=== PATIENT | male | born 1955 | race Caucasian/White ===

== ENCOUNTER 2019-06-19 06:00 | Outpatient (RCR) | payer OTHER, SELFPAY | END 2019-07-19 00:01 | LOC: SPT 06:00 | PROVIDERS: Family Provider Internal Medicine; Visit Provider Internal Medicine | DX: Z47.1 Aftercare following joint replacement surgery (principal); Z96.651 Presence of right artificial knee joint; M25.561 Pain in right knee | CPT/HCPCS: 97110 ×7; 97140 ×6 ==

== ENCOUNTER 2019-07-20 06:00 | Outpatient (RCR) | payer OTHER, SELFPAY | END 2019-08-15 23:00 | disposition home or self-care (01) | LOC: SPT 06:00 | PROVIDERS: Family Provider Internal Medicine; PCP Internal Medicine; Visit Provider Internal Medicine | DX: M17.11 Unilateral primary osteoarthritis, right knee (principal); Z96.651 Presence of right artificial knee joint | CPT/HCPCS: 97110; 97140; 97164 ==

== ENCOUNTER 2019-08-10 06:00 | Outpatient (RCR) | payer OTHER, SELFPAY | END 2019-08-19 23:59 | disposition home or self-care (01) | LOC: SPT 06:00 | PROVIDERS: Family Provider Internal Medicine; PCP Internal Medicine; Visit Provider Internal Medicine | DX: I89.0 Lymphedema, not elsewhere classified (principal) | CPT/HCPCS: 97140; 97161 ==

== ENCOUNTER 2019-08-22 | Outpatient (RCR) | payer OTHER, SELFPAY | END 2019-08-27 | disposition home or self-care (01) | LOC: SPT | PROVIDERS: Family Provider Internal Medicine; PCP Internal Medicine; Visit Provider Internal Medicine | DX: I89.0 Lymphedema, not elsewhere classified (principal) | CPT/HCPCS: 97140 ==